=== PATIENT | female | born 1965 | race Caucasian/White ===

== ENCOUNTER 2016-05-06 13:30 | Outpatient (CLI) | payer OTHER | END 2016-05-06 13:31 | disposition home or self-care (01) | DX: R31.9 Hematuria, unspecified (principal) ==

== ENCOUNTER 2017-01-27 10:29 | Outpatient (CLI) | payer OTHER ==
--- NOTE | 2017-01-28 16:05 | Mammography Report ---
DIGITAL BILATERAL SCREENING MAMMOGRAM: 01/27/2017 INDICATION: Screening mammography. TECHNIQUE: Routine CC and MLO projections were obtained of the breasts. FINDINGS: Parenchymal tissue within both breasts is extremely dense, which lowers the sensitivity of mammography; however, there are no dominant masses, suspicious microcalcifications, or secondary sig ns of malignancy. In comparison to the previous studies, there are no significant changes. IMPRESSION: No mammographic evidence of malignancy. PLAN: Screening mammography is recommended annually. BIRADS category 1 - negative. STANDARD QUALIFYING STATEMENTS 1. This examination was reviewed with the aid of Computed-Aided Detection (CAD). 2. A negative or benign imaging report should not delay biopsy if clinically suspicious findings are present. Consider surgical consultation if warranted. More than 5% of cancers are not identified by i maging. 3. Dense breasts may obscure an underlying neoplasm. JOB #: [id number] EXT JOB #:[id number]
== END 2017-01-27 10:30 | disposition home or self-care (01) ==
LOC: DI.N 10:29
PROVIDERS: ATTEND Physician Assistant Medical
DX: Z12.39 Encounter for other screening for malignant neoplasm of breast (principal)
CPT/HCPCS: 77067

== ENCOUNTER 2018-12-12 14:15 | Outpatient (CLI) | payer OTHER | END 2018-12-12 14:16 | disposition home or self-care (01) | LOC: LAB.WCP 14:15 | PROVIDERS: ATTEND Physician Assistant Medical | DX: R30.0 Dysuria (principal) | CPT/HCPCS: 87086 ==

== ENCOUNTER 2021-07-02 15:03 | Outpatient (CLI) | payer OTHER ==
--- NOTE | 2021-07-03 15:09 | Mammography Report ---
BILATERAL DIGITAL SCREENING MAMMOGRAM 3D/2D: 07/02/2021 CLINICAL: Family history of breast cancer. Routine screening. Comparison is made to exam dated: 01/27/2017 mammogram - [facility]. The tissue o f both breasts is heterogeneously dense. This may lower the sensitivity of mammography. No significant masses, calcifications, or other findings are seen in either breast. There has been no significant interval change. IMPRESSION: NEGATIVE There is no mammographic evidence of malignancy. A 1 year screening mammogram is recommended. This exam was interpreted at Station ID: [id number]. NOTE: For mammograms, a report in lay terms will be sent to the patient. Approximately 15% of breast malignancies will not be visualized mammographically. In the management of a palpable breast mass, a negative mammogram must not discourage biopsy of a clinically suspicious lesion. Electronically Signed By: Oli Davila M.D. ar/penrad:07/02/2021 16:24:03 ACR BI-RADS Category 1: Negative 3341F PARENCHYMAL PATTERN: (D) - The breast(s) demonstrate(s) heterogeneously dense fibroglandular patsy shelley. BI-RADS CATEGORY: (1) - 1 RECOMMENDATION: (ANNUAL) - Recommend routine annual screening mammography. [id number] 1 year screening LATERALITY: (B)
== END 2021-07-02 15:04 | disposition home or self-care (01) ==
LOC: DI.N 15:03
DX: Z12.31 Encounter for screening mammogram for malignant neoplasm of breast (principal); Z80.3 Family history of malignant neoplasm of breast

== ENCOUNTER 2022-04-21 12:24 | Outpatient (CLI) | payer OTHER ==
[2022-04-21 13:29] LABS: THYROID STIMULATING HORMONE 2.05 uIU/mL (0.34-5.60)
[2022-04-21 13:33] LABS: FREE T4 (FREE THYROXINE) 0.89 ng/dL (0.58-1.64)
[2022-04-21 13:34] LABS: FREE T3 3.12 pg/mL (2.5-3.9)
--- NOTE | 2022-04-21 17:16 | XRAY Report ---
PROCEDURE: Lumbar Spine 2 View INDICATIONS: LOW BACK PAIN TECHNIQUE: 2 views of the lumbar spine were acquired. COMPARISON: None. FINDINGS: Bones: 5 [id number] vertebrae are present. Trace retrolisthesis L3 on 4. Mild disc space loss and endplate spurring at this level. No vertebral body compression fractures. No suspicious bony les ions. Soft tissues: Overlying bowel gas pattern is normal. No suspicious soft tissue calcifications. IMPRESSION: 1. Mild spondylosis centered at the L3-4 level. Reviewed by: Gail Jaeger MD on 04/21/2022 5:15 PM PST Approved by: Gail Jaeger MD on 04/21/2022 5:15 PM PST Station ID: [id number]
== END 2022-04-21 12:25 | disposition home or self-care (01) ==
LOC: DI 12:24
PROVIDERS: ATTEND Nurse Practitioner
DX: M47.816 Spondylosis without myelopathy or radiculopathy, lumbar region (principal); R00.0 Tachycardia, unspecified
CPT/HCPCS: 36415; 84439; 84443; 84481

== ENCOUNTER 2023-03-23 08:00 | Outpatient (CLI) | payer BC, OTHER ==
[2023-03-23 20:42] LABS: INFLUENZA A- RESP PCR PANEL NOT DETECTED; INFLUENZA B - RESP PCR PANEL NOT DETECTED; RSV- RESP PCR PANEL NOT DETECTED; SARS-CoV-2 -RESP PCR PANEL NOT DETECTED
== END 2023-03-23 23:59 | disposition home or self-care (01) ==
LOC: LAB.WCP 08:00
PROVIDERS: ATTEND Nurse Practitioner
DX: R50.9 Fever, unspecified (principal)
CPT/HCPCS: 87637

== ENCOUNTER 2023-09-09 13:35 | Outpatient (CLI) | payer BC ==
--- NOTE | 2023-09-10 07:27 | XRAY Report ---
PROCEDURE: Knee 3V RT INDICATIONS: PAIN IN RIGHT KNEE TECHNIQUE: 3 views of the knee(s) were acquired. COMPARISON: None. FINDINGS: Bones: No fractures or dislocations. No suspicious bony lesions. Soft tissues: Trace knee joint effusion. No suspicious soft tissue calcifications or masses. IMPRESSION: No acute bony abnormality. If clinical symptoms persist, consider MRI for further evaluation. Reviewed by: Tony Whitlock MD on 09/10/2023 7:26 AM PDT Approved by: Tony Whitlock MD on 09/10/2023 7:26 AM PDT Station ID: [id number]
== END 2023-09-09 16:01 | disposition home or self-care (01) ==
LOC: DI.N 13:35
PROVIDERS: ATTEND Physician Assistant
DX: M25.561 Pain in right knee (principal)

== ENCOUNTER 2023-09-14 13:29 | Outpatient (CLI) | payer BC ==
--- NOTE | 2023-09-14 22:15 | MRI Report ---
Knee RT WO CLINICAL INFORMATION: 58 years of age, Female, RIGHT KNEE PAIN. COMPARISON: None Technique: Multisequence, multiplanar MRI of the right knee was performed without intravenous contras t. FINDINGS: Menisci: In the medial meniscus, there is a horizontal oblique tear of the posterior horn, extending to the meniscus body. There is mild extrusion of the meniscus body with a small meniscus flap extendi ng into the inferior gutter. The lateral meniscus is unremarkable. Cruciate ligaments: The anterior and posterior cruciate ligaments are intact. MCL/LCL: The MCL is unremarkable. The biceps femoris tendon is unremarkable. The fibular collateral ligament is unremarkable. The iliotibial band is intact. The popliteus muscle and tendon also appear intact. Extensor mechanism: The quadricep tendon is unremarkable. The patella tendon is unremarkable. Mild knight perolateral Hoffa's pad edema, raising concern for patellar maltracking. Patellofemoral joint: Alignment within the patellofemoral joint is normal. The patellofemoral ligame nts are intact. Cartilage and bone marrow signal within the patella and femoral trochlea are normal. Cartilage and bone: In the medial compartment, there is mild chondral irregularity of the nonweightbe aring portion of the femoral condyle. There is a 1.3 cm osteochondral lesion in the posterior nonweig htbearing portion of the femoral condyle, with small amount of linear fluid, and no marrow edema. In the lateral compartment, there is mild chondral irregularity of the posterior nonweightbearing portio n of the femoral condyle. Miscellaneous: No significant joint effusion. Trace popliteal cyst. Mild tendinosis of the distal se mimembranosus tendon. No intra-articular bodies are identified. Normal muscle signal intensity and mo rphology. No vascular anomaly. IMPRESSION: 1.Tear of the medial meniscus. 2.Finding concerning for patellar maltracking. 3.1.3 cm osteochondral lesion in the posterior weightbearing portion of the medial femoral condyle. 4.Mild chondrosis of the medial and lateral compartment. Reviewed by: Sharona Bright MD on 09/14/2023 10:14 PM PDT Approved by: Sharona Bright MD on 09/14/2023 10:14 PM PDT Station ID: [id number]
== END 2023-09-14 13:30 | disposition home or self-care (01) ==
LOC: DI 13:29
PROVIDERS: ATTEND Physician Assistant
DX: S83.241A Other tear of medial meniscus, current injury, right knee, initial encounter (principal); M89.9 Disorder of bone, unspecified

== ENCOUNTER 2023-09-26 14:30 | Outpatient (CLI) | payer BC ==
--- NOTE | 2023-09-26 16:32 | XRAY Report ---
PROCEDURE: Knee 4+V BL INDICATIONS: PAIN IN RIGHT AND LEFT KNEE TECHNIQUE: 4 views of each knee(s) were acquired. COMPARISON: 09/09/2023 FINDINGS: Bones: Normal mineralization. No fractures or malalignment. There is mild symmetric medial compartme nt joint space loss bilaterally. Other joint spaces are preserved. No suspicious bone lesion. Soft tissues: No knee joint effusion. No suspicious soft tissue calcifications or masses. No chondr ocalcinosis. IMPRESSION: Mild symmetric medial compartment tibiofemoral joint space loss. Reviewed by: Gail Jaeger MD on 09/26/2023 4:31 PM PDT Approved by: Gail Jaeger MD on 09/26/2023 4:31 PM PDT Station ID: [id number]
== END 2023-09-26 14:31 | disposition home or self-care (01) ==
LOC: DI.N 14:30
PROVIDERS: ATTEND Physician Assistant Surgical
DX: M25.861 Other specified joint disorders, right knee (principal); M25.862 Other specified joint disorders, left knee